=== PATIENT | male | born 1990 | race Caucasian/White ===

== ENCOUNTER → 2020-07-13 | Outpatient (CLI) | payer OTHER ==
[~2020-07-13] VITALS: Ht 182.9 cm; Wt 108.4 kg
[~2020-07-13] MED LIST: DEXT10TA23 PO; LISI2.5T PO; SINCALIDE 2.2 MCG in IV NORMAL SALINE 50ML 30 ML IV ONE
--- NOTE | 2020-07-13 08:40 | RAD ---
EXAM: Abdomen sonogram. HISTORY: Epigastric pain. TECHNIQUE: Sonographic imaging of the abdomen was performed. COMPARISON: None. FINDINGS: The liver is enlarged. There is hepatic steatosis. No focal hepatic lesion is seen. The common bile duct is normal in caliber. The gallbladder, right kidney, and inferior vena cava are unremarkable. The aorta and pancreas are obscured due to bowel gas. IMPRESSION: 1. Hepatomegaly and hepatic steatosis. 2. Limited evaluation of the pancreas and aorta due to bowel gas. Electronically signed by: Sofy Velazquez MD (07/13/2020 8:38 AM) [id number]
--- NOTE | 2020-07-13 12:55 | RAD ---
EXAM: Nuclear hepatobiliary scan. HISTORY: Pain. TECHNIQUE: Following intravenous administration of 5.5 mCi Tc 99m Choletec, anterior images of the abdomen were obtained at five minute intervals through one hour. Subsequently, 2.2 mcg sincalide was administered and additional images to assess gallbladder ejection fraction were obtained. FINDINGS: There is prompt radiotracer uptake by the liver. No focal defect is seen. There is normal excretion into the biliary tree. The gallbladder is visualized within 5 minutes and there is free flow into the duodenum. The gallbladder ejection fraction is 38 percent. IMPRESSION: Low normal gallbladder ejection fraction of 38 percent. Electronically signed by: Sofy Velazquez MD (07/13/2020 12:52 PM) [id number]
== END ==
LOC: US 07:52
PROVIDERS: ATTEND Internal Medicine Gastroenterology
DX: K76.0 Fatty (change of) liver, not elsewhere classified (principal); R16.0 Hepatomegaly, not elsewhere classified
CPT/HCPCS: 76705; 78227; A9537; J2805